=== PATIENT | female | born 1970 | race Caucasian/White ===

== ENCOUNTER → 2016-07-28 | Outpatient (CLI) | payer OTHER, MEDICARE ==
[~2016-07-28] MED LIST: BACTRIM DS 8001 TA1 PO; DULOXETINE HYDR30 MG PO; KEFLEX500 M1 PO; NAPROSYN 500MG500 MG PO; SUMATRIPTAN SUC50 M1 PO; TYLENOL WITH CO1 TA1 PO
--- NOTE | 2016-07-31 10:35 | RADIOLOGY REPORT PS360 ---
DIG MAMM-SCREEN COLTEN W/CAD CAD Screening COMPARISON: Digital mammograms 12/18/2013 and right mammogram 06/23/2014 INDICATION: There is no personal or family history of breast cancer TECHNIQUE: Standard CC and MLO images were obtained. R2 CAD reviewed. FINDINGS: The breasts are composed primarily of fat with minimal scattered fibroglandular densities in the upper outer quadrants of both breasts. There is no new orders suspicious lesion in either breast and there are no suspicious microcalcifications. IMPRESSION: Fibrofatty parenchyma no suspicious lesion seen recommend yearly follow-up BI-RADS CATEGORY: 1_Negative RECOMMENDED FOLLOWUP: 12M 12 MONTH FOLLOW-UP (A letter has been sent to the patient regarding results of the study.)
== END ==
LOC: RAD 14:33
DX: Z12.31 Encounter for screening mammogram for malignant neoplasm of breast (principal)
CPT/HCPCS: G0202

== ENCOUNTER → 2017-04-17 | Outpatient (CLI) | payer OTHER, MEDICARE ==
--- NOTE | 2017-04-17 15:19 | RADIOLOGY REPORT PS360 ---
US RUQ-(ABD LTD)1ORGAN/QUAD/FU HISTORY: Epigastric pain, right shoulder pain after being EPIGASTRIC PAIN ORDERING PHYSICIAN: Jacinto Lam MD PATIENT AGE: 46 years COMPARISON: None FINDINGS: PANCREAS:Unremarkable. No obvious mass or abnormal fluid collection. No ductal dilatation LIVER:No focal liver lesions demonstrated. Homogeneous echogenicity. No intrahepatic biliary ductal dilatation evident RIGHT KIDNEY:Unremarkable. Normal size and echogenicity. No hydronephrosis GALLBLADDER: There is a small amount of sludge versus concentrated bile within the gallbladder. No shadowing stones, gallbladder wall thickening, pericholecystic fluid or below dilatation. Common bile duct is 4 mm. IMPRESSION: Essentially negative right upper quadrant ultrasound
== END ==
LOC: RAD 08:22
DX: R10.13 Epigastric pain (principal)